=== PATIENT | male | born 1995 | race Caucasian/White ===

== ENCOUNTER → 2018-11-20 16:25 | Outpatient (CLI) | payer BC, SELFPAY ==
[2018-11-27 12:56] LABS: H. pylori Breath Test Negative (Negative)
== END ==
PROVIDERS: Visit Provider Nurse Practitioner Family
DX: K30 Functional dyspepsia (principal); R42 Dizziness and giddiness
CPT/HCPCS: 83013; 93225; 93226

== ENCOUNTER → 2018-12-16 14:21 | Outpatient (POV) | payer BC, SELFPAY | PROVIDERS: Visit Provider Nurse Practitioner Acute Care | DX: Z00.00 Encounter for general adult medical examination without abnormal findings (principal) ==

== ENCOUNTER 2022-01-04 09:01 | Emergency (ER) | payer BC, SELFPAY ==
[2022-01-04 09:29] VITALS: BP 141/88; PULSE 119; RESP 18; TEMP 37.6; O2SAT 98; BMI 34.2
[2022-01-04 09:44] LABS: UTC Strep Screen (Rapid) Positive (Negative)
--- NOTE | 2022-01-04 09:45 | HMH.EDUTC ---
[facility] [place] Disposition Clinical Impression: Strep throat Disposition: Home, Self-Care Condition on Discharge: Good Instructions: DI for Strep Throat, Strep Throat Additional Instructions: *Monitor Temp, Over the counter Motrin or Tylenol as directed/as needed Tylenol every 4 hours and Motrin every 6 hours (as long as your family doctor has told you that you can take it) for fever or pain. and straight to ER if unable to lower temp less than 101.0 after medication given *Warm salt water gargles may help to soothe the throat *Throat Lozenges *Warm fluids like tea with honey may help to soothe the throat *Sleep elevated *If you did not take Penicillin shot or was unable to, start taking antibiotic immediately and make sure that you take it for the FULL length of time although you should start to feel better in 24-48 hours *change toothbrush and toothpaste 24-48 hours after starting to take antibiotics so you do not reinfect yourself Monitor Temp. Tylenol and/or Ibuprofen as needed. ER if fever is no less than 101 despite alternating Tylenol and Ibuprofen * Encourage fluids, water, Gatorade, powerade, pedialyte if /toddler/or child *Cold fluids, popsicles and ice cream may feel good on his throat Humidifier/Vaporizer Follow up IMMEDIATELY for new or worsening symptoms or no Noticeable improvement over the next 48-72 hours. 911 for difficulty breathing or swallowing Prescriptions: Amoxicillin [Amoxicillin 875MG Tab] 875 mg PO Q12H #20 tab Transmission Status: Pending to [id number] Referrals: Pascual Chao MD [Primary Care Provider] - As needed Forms: Work/School Release Time of Disposition: 09:56 Medical Decision Making - Timoteo Inquiry Pt receiving controlled substance: No Timoteo was queried for this patient: No Vital Signs: 01/04/22 09:29 Temperature 99.6 F Temperature Source Temporal Artery Scan Pulse Rate [Right Brachial] 119 H Respiratory Rate 18 Blood Pressure [Right Arm] 141/88 H Blood Pressure Mean [Right Arm] 105 Blood Pressure Source [Right Arm] Automatic Cuff Blood Pressure Position [Right Arm] Sitting 02 Sat by Pulse Oximetry 98 Oxygen Delivery Method Room Air - Lab Data Lab Results 01/04/22 09:29: Strep Scn Rapid Clinic Positive A [facility] [place] HPI - General Stated complaint: sore throat, fever Time Seen by Provider: 01/04/22 09:45 Mode of Arrival: Ambulatory Source of Information: Patient Limitations: No Limitations Description of Symptoms (Recalled from Triage Doc. by RN): sore throat, fever over 100.0, sinus drainage, exposure to strep HEENT Symptoms (Recalled from RN notes): Yes Resp Symptoms (Recalled from RN notes): No Skin Symptoms (Recalled from RN notes): No MS Symptoms (Recalled from RN notes): No Functional Status (Recalled from RN notes): WNL - History of Present Illness Provider Complaint: Patient state that he has been exposed to strep throat by his niece and uncle State that for the last couple of days he has been having sore throat, headache and fever States that this morning he was still not feeling well so he came in to get checked out - Related Data Previous Rx's Medication Instructions Recorded vilazodone 20 mg tablet 20 mg PO DAILY 30 Days #30 tab 02/02/20 omeprazole 20 mg capsule,delayed See Rx Instructions .ROUTE 07/08/20 release .COMPLEX #90 cap Amoxicillin [Amoxicillin 875MG 875 mg PO Q12H #20 tab 01/04/22 Tab] Allergies Allergy/AdvReac Type Severity Reaction Status Date / Time prednisone Allergy Mild Acid Verified 02/02/20 08:38 reflux - Worker's Comp Is this a Worker's Comp case?: No [facility] History - Hepatitis A Screen Drug use history?: No High risk sexual behaviors?: No History of sexually transmitted infection?: No Currently employed?: No Childcare worker?: No Do you have indoor plumbing?: Yes Do you have electricity?: Yes Attestation statement:: This patient has been screened for Hepatitis A risk
[2022-01-04 10:02] VITALS: BP 141/88; PULSE 119; RESP 18; TEMP 37.6; O2SAT 98
== END 2022-01-04 10:02 | disposition home or self-care (01) ==
PROVIDERS: Emergency Provider Nurse Practitioner; PCP Emergency Medicine
DX: J02.0 Streptococcal pharyngitis (principal); F41.8 Other specified anxiety disorders; K21.9 Gastro-esophageal reflux disease without esophagitis
CPT/HCPCS: 87880; 99202; G0463